=== PATIENT | female | born 1955 | race Caucasian/White ===

== ENCOUNTER 2025-03-30 13:57 | Emergency (ER) | payer MEDICARE, SELFPAY ==
[2025-03-30 14:03] VITALS: BP 173/94
[2025-03-30 14:33] LABS: % Immature Granulocytes 0.2 % (0-0.5); % Lymphocytes 17.9 % (20.5-51.1); % Neutrophils 68.9 % (42.2-75.2); Absolute Basophils 0.1 10^3/uL (0-0.2); Absolute Eosinophils 0.1 10^3/uL (0-0.7); Absolute Lymphocytes 0.9 10^3/uL (1.2-3.4); Absolute Monocytes 0.6 10^3/uL (0.1-0.6); Absolute Neutrophils 3.6 10^3/uL (1.4-6.5); Hematocrit 40.4 % (37.0-47.0); Hemoglobin 13.8 g/dL (12.0-16.0); Mean Corp Hgb Conc. 34.2 g/dL (33.0-37.0); Mean Corpuscular Hgb 30.3 pg (27.0-31.0); Mean Corpuscular Volume 88.6 fL (81.0-99.0); Mean Platelet Volume 8.2 fL (7.4-10.4); Nucleated Red Blood Cells % 0 %; Platelet Count 147 10^3/uL (130-400); Red Blood Cell Count 4.56 10^6/uL (4.20-5.40); Red Cell Dist. Width 13.1 % (11.5-14.5); White Blood Cell Count 5.2 10^3/uL (4.8-10.8)
[2025-03-30 14:45] LABS: COVID-19 Antigen Negative (Negative)
[2025-03-30 14:47] LABS: Blood Urea Nitrogen 21 mg/dl (7-17); Calcium 9.2 mg/dl (8.4-10.2); Carbon Dioxide 25 mmol/L (22-30); Chloride 109 mmol/L (98-107); Glucose 101 mg/dl (70-99); Sodium 141 mmol/L (135-145); eGFR > 60.00
[2025-03-30 16:41] VITALS: BP 167/90
[2025-03-30 17:00] VITALS: BP 164/88
--- NOTE | 2025-03-30 17:52 | ED.GENMED ---
History of Present Illness
General
Chief Complaint: Cold/Flu/URI Symptoms
Time Seen by Provider: 03/30/25 16:39
History of Present Illness
History of Present Illness:
70-year-old female with no reported past medical history, however notes she does not typically see a doctor, presenting for 2 days of cough and congestion. Reports some tightness in her chest with coughing. Cough is productive. Does note sick
contact at home, granddaughter. Denies fever. Denies abdominal pain. Denies any pulmonary history. Does report history of smoking in the past. Denies additional acute medical complaints
Phy Exam
Physical Exam
Physical Exam:
General: Well-appearing, no clinical signs of dehydration, nontoxic and in no acute distress
HEENT: protecting airway
Neck: appears supple
CV: Normal heart rate, regular rhythm
Resp: No accessory muscle use, no increased work of breathing, lungs clear to auscultation bilaterally
Abd: Soft and non-distended, no tenderness to palpation
Extremities: No deformities, no swelling
Neuro: alert, no focal neurologic deficit
: deferred
Rectal: deferred
Psych: Normal affect
Skin: Intact
Course
Orders/Labs/Results
Orders:
Orders
03/30/25 14:07
EKG [Electrocardiogram (*1)] Urgent
Reason for Study: Chest Pain
CR Chest - 2 Views Urgent
Comment:
Reason For Exam: cough
03/30/25 14:08
EKG- Treatment ONCE
03/30/25 14:18
Basic Metabolic Panel Urgent
COVID-19 Antigen Urgent
Source: Nasal Swab
Complete Blood Count/With Diff Urgent
Influenza A+B Rapid Molecular Urgent
JEFFERY Source: Nasal Swab
Specimen Description:
Abnormal Lab Results
03/30/25
14:18
Absolute Lymphs (auto) 0.9 L 10^3/uL
(1.2-3.4)
Lymphocytes % 17.9 L %
(20.5-51.1)
Monocytes % 11.0 H %
(1.7-9.3)
Chloride 109 H mmol/L
(98-107)
BUN 21 H mg/dl
(7-17)
Glucose 101 H mg/dl
(70-99)
03/30/25 14:18
03/30/25 14:18
Vital Signs
Initial and Last Documented VS:
Initial Vital Signs
Temp Pulse Resp BP Pulse Ox
98.5 F 96 16 173/94 95
03/30/25 14:03 03/30/25 14:03 03/30/25 14:03 03/30/25 14:03 03/30/25 14:03
Last Documented Vital Signs
Temp Pulse Resp BP Pulse Ox
98.5 F 83 15 164/88 98
03/30/25 14:03 03/30/25 18:30 03/30/25 18:30 03/30/25 17:00 03/30/25 17:45
MDM/Problems Addressed
MDM/Problems Addressed:
70-year-old female presenting for cough and congestion for 2 days. Vital signs on arrival are significant for high blood pressure.
On exam patient is resting comfortably, no acute distress or discomfort. Unremarkable cardiac and pulmonary exam. Active cough. However, no respiratory distress. No focal abnormal lung sounds. EKG obtained prior to my assessment, nonischemic.
Patient does not chest tightness with coughing. Ultimately suspect from chest wall discomfort. Labs obtained prior to my assessment. No leukocytosis, patient afebrile, without concern for serious systemic infection. Chest x-ray without evidence
of pneumonia. Ultimately suspect viral syndrome and bronchitis. No history of diabetes, so will start patient on a albuterol inhaler and steroid pack. Patient has been hypertensive in the emergency department, has not seen in several years. No
signs of endorgan dysfunction, without concern for hypertensive urgency or emergency. Feel reasonable to start patient on low-dose antihypertensive medication, suspect underlying diagnosis of high blood pressure. Will start amlodipine. Otherwise
feel stable for discharge. Return precautions discussed and patient verbalized understanding
*EKG
Interpreted by ED Provider?: Yes
EKG Intrepretation Date: 03/30/25
EKG Intrepretation Time: 17:55
Interpretation: normal
Heart Rate: 87
Rate: normal
Rhythm: sinus
Hundred: normal axis
Interval: normal interval
QRS Pattern: left vent hypertrophy
Ischemia: no ischemia
*Critical Care Note
Total Time (30-74mins, 75-104mins- exclusive of procedures): Not Applicable
ED Attending Note
-
Portions of this chart may have been created with voice recognition software.� Occasional wrong word or��sound alike� substitutions may have occurred due to the inherent limitations of voice recognition software.
Discharge Plan
Departure
Patient Disposition: Home (Routine Discharge)
Date of Disposition: 03/30/25
Time of Disposition: 18:36
Patient with high blood pressure during this ER visit?: Yes
Condition: Good
Discharge Problem:
Upper respiratory infection, viral, Bronchitis, Hypertension
Instructions: Acute Bronchitis, Adult (DC), Viral Syndrome (DC), BLOOD PRESSURE
Prescriptions:
New
methylprednisolone [Medrol (Sven)] 4 mg tablets,dose pack
See Rx Instructions .ROUTE .COMPLEX Qty: 21 0RF
Rx Instructions:
for 6 days
albuterol sulfate 90 mcg/actuation aerosol powdr breath activated
2 inh inhalation Q4H PRN (Reason: shortness of breath) Qty: 1 0RF
amlodipine 5 mg tablet
5 mg PO DAILY Qty: 30 0RF
Referrals:
[facility] [Provider Group]
Clarisa Wood DO [Family Provider] -
Activity Restrictions/Additional Instructions:
You were seen in the emergency department for cough and congestion
You were found to have normal blood work, chest x-ray imaging, EKG. We suspect that you have a viral upper respiratory infection and bronchitis. You were prescribed a inhaler and steroid pack. You were also found to be hypertensive with concern
for underlying hypertension. You were started on a blood pressure medication. Please take as directed and please establish care with a primary care doctor
Please follow-up closely with your primary care physician.
Return to the emergency department for any worsening of your symptoms, or any development of chest pain, difficulty breathing, abdominal pain with persistent vomiting and inability to tolerate food or liquid by mouth (concern for dehydration),
weakness, headache or confusion, fever greater than 100.4, or any additional symptoms that are concerning to you.
Thank you for choosing [facility].
Interventions
Interventions:
*Risk Screen - Suicide Last Done: 03/30/25 14:03
*General Assessment Last Done: 03/30/25 14:03
*ED- Fall Risk Assessment Last Done: 03/30/25 14:03
*ED COVID-19 Vaccine History Last Done: 03/30/25 14:03
*Nursing Disposition Last Done: 03/30/25 18:46
ED- Pulmonary Assessment Last Done: 03/30/25 16:44
Discharge Date and Time
Discharge Date/Time: 03/30/25 18:46
Print Language: [id number]
== END 2025-03-30 18:46 | disposition home or self-care (01) ==
LOC: EMR 13:57
PROVIDERS: Emergency Medicine; EMERGENCY PHYSICIAN Student in an Organized Health Care Education/Training Program; FAMILY PHYSICIAN Family Medicine
DX: J06.9 Acute upper respiratory infection, unspecified (principal); J40 Bronchitis, not specified as acute or chronic; I10 Essential (primary) hypertension; Z87.891 Personal history of nicotine dependence
CPT/HCPCS: 99283; 71046; 80048; 85025; 87502; 87811; 93005